=== PATIENT | female | born 1995 ===

== ENCOUNTER 2022-05-27 18:20 | Outpatient (CLI) | payer OTHER, MEDICAID, SELFPAY ==
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
[2022-05-28 13:27] LABS: Add Manual Diff / Slide Review NO; Basophils Absolute Auto 100 /uL (0-100); Basophils Percent Auto 0.5 % (0-2); Eosinophils Absolute Auto 0 /uL (0-450); Eosinophils Percent Auto 0.2 % (2-4); Hematocrit 37.6 % (36-46); Hemoglobin 12.2 g/dL (12.0-16.0); Lymphocytes Absolute Auto 1500 /uL (1100-4500); Lymphocytes Percent Auto 8.7 % (25-40); Mean Corpuscular HGB Conc 32.5 % (30-36); Mean Corpuscular Hemoglobin 28.2 PG (26-34); Mean Corpuscular Volume 86.8 fL (80-100); Monocytes Absolute Auto 800 /uL (0-900); Monocytes Percent Auto 4.5 % (3-14); Neutrophils Absolute Auto 15400 /uL (1500-7000); Neutrophils Percent Auto 86.1 % (50-75); Platelet Count 335 X10^3/uL (150-400); Red Blood Cell Count 4.33 X10^6/uL (4.0-5.2); Red Cell Distribution Width 14.3 % (11.6-14.8); White Blood Cell Count 17.9 X10^3/uL (4.5-11.0)
[2022-05-28 13:44] LABS: COVID19 -Nasal RAPID Negative (Negative)
[2022-05-28 13:52] LABS: BUN Creatinine Ratio 15.3 (6-22); Blood Urea Nitrogen 9 mg/dL (7-17); Calcium 9.6 mg/dL (8.4-10.2); Carbon Dioxide 22 mmol/L (22-32); Chloride 103 mmol/L (98-107); Estimated Glomerular Filt Rate > 60 mL/min (>60); Glucose 112 mg/dL (70-100); HEMOLYSIS < 15 (0-50); Potassium 4.8 mmol/L (3.4-5.1); Sodium 132 mmol/L (137-145)
[2022-05-28 18:10] LABS: HIV 1 & 2 Ab/Ag 4th Gen Combo NEGATIVE (NEGATIVE)
[2022-05-28 18:11] LABS: Hepatitis B Surface Antigen NEGATIVE s/c (NEGATIVE)
[2022-05-29 03:36] LABS: Hepatitis B Core Antibody Negative (Negative)
[2022-05-29 08:23] LABS: Varicella IgG Antibody <135 index (Immune >165)
== END 2022-05-27 19:15 | disposition home or self-care (01) ==
LOC: OB 05-29 07:52
PROVIDERS: Obstetrics & Gynecology; Family Provider Family Medicine; Referring Provider Obstetrics & Gynecology; Visit Provider Obstetrics & Gynecology
DX: O47.1 False labor at or after 37 completed weeks of gestation (principal); Z3A.38 38 weeks gestation of pregnancy
CPT/HCPCS: 36415; 59025; 80048; 85025; 86704; 86762; 86787; 86850; 86900; 86901; 87340; 87389; 87635; C9803; G0378; G0379

== ENCOUNTER 2022-05-28 10:20 | Inpatient (IN) | payer OTHER, MEDICAID, SELFPAY ==
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
[2022-05-28] MEDS: CALCIUM CARBONATE 500 MG TAB 1000 MG PO (15:48)
[2022-05-28 15:58] LABS: UR Morphine/Opiate cutoff 300 Negative (Negative); Ur Creatinine Normal (Normal); Ur Specific Gravity Normal (Normal); Urine Amphetamines Positive (Negative); Urine Cocaine Negative (Negative); Urine Tetrahydrocannabinol Positive (Negative); Urine pH Normal (Normal)
[2022-05-28 15:59] LABS: Urine Barbiturates Negative (Negative); Urine Benzodiazepines Negative (Negative); Urine MDMA Positive (Negative); Urine Methadone Negative (Negative); Urine Methamphetamines Positive (Negative); Urine Oxycodone Negative (Negative); Urine Phencyclidine Negative (Negative); Urine Tricyclic Antidepressant Positive (Negative)
--- NOTE | 2022-05-28 17:39 | PM.OBPRVD ---
Events: No Care Labor & Delivery Delivery date: 05/28/22 Intrapartal Events: Deceleration (Variables w/ pushing in the second stage) Cervical ripening method: none Induction method: none Delivery monitor: external FHT and external uterine Route of delivery: vacuum extraction Indication for instrumentation: nonreassuring FHR tracing Episiotomy description: None L&D Laceration Description: Perineal - 2nd Degree Delivery repair: chromic Estimated blood loss (mL): 400 Anesthesia Type: Epidural [place] Baby 1: gender: Female Presentation: vertex Position: Left Occiput Anterior Placenta delivery description: Spontaneous Cord Vessel Description: 3 Vessels score (1 min): 8 score (5 min): 9 weight: 7 lb 14.104 oz Narrative: After brief 2nd stage, the patient had pushed the baby down to +2 station but with each subsequent push, deep variables occurred. Unable to deliver the over the intact perineum, a Kiwi OmniCup was applied to the vertex at +2-3 station or and with a single pull utilizing suction less than 550 mm Hg at all times, the infant was easily brought down to the perineum where she pushed the baby out after release of the vacuum extractor. Shoulders and body delivered without incident and there was no cord entanglement noted. Skin to skin contact was initiated immediately and delayed cord clamping performed. The was vigorous and after 60 seconds, the umbilical cord was doubly clamped and cut. A sample of cord blood was then obtained for routine studies. The placenta was easily delivered with gentle cord traction and suprapubic countertraction. The placenta was seen to be in with central cord insertion and a three-vessel cord. Inspection of the perineum revealed a simple midline second-degree perineal laceration which was closed with 2-0 chromic catgut suture in the usual manner. IM Methergine 0.2 mg was administered due to slow firming of the uterus and resulting greater than average blood loss. At the completion of the delivery process, the patient's bleeding was minimal with both mother and infant tolerated the procedure well. Plan for aftercare: Routine care
[2022-05-28] MEDS: IBUPROFEN 600 MG TABLET PO (23:33)
[2022-05-28] MEDS: ACETAMINOPHEN 325 MG TABLET 650 MG PO (23:34)
[2022-05-29 06:06] LABS: RPR Screen Non Reactive (Non Reactive)
[2022-05-29 08:35] LABS: Add Manual Diff / Slide Review NO; Basophils Absolute Auto 100 /uL (0-100); Basophils Percent Auto 0.9 % (0-2); Eosinophils Absolute Auto 200 /uL (0-450); Eosinophils Percent Auto 1.9 % (2-4); Hematocrit 27.2 % (36-46); Lymphocytes Absolute Auto 3100 /uL (1100-4500); Mean Corpuscular HGB Conc 33.1 % (30-36); Mean Corpuscular Hemoglobin 28.5 PG (26-34); Mean Corpuscular Volume 86.2 fL (80-100); Monocytes Absolute Auto 1100 /uL (0-900); Monocytes Percent Auto 8.7 % (3-14); Neutrophils Absolute Auto 8300 /uL (1500-7000); Neutrophils Percent Auto 64.5 % (50-75); Platelet Count 258 X10^3/uL (150-400); Red Blood Cell Count 3.16 X10^6/uL (4.0-5.2); Red Cell Distribution Width 14.4 % (11.6-14.8); White Blood Cell Count 12.8 X10^3/uL (4.5-11.0)
[2022-05-29] MEDS: IBUPROFEN 600 MG TABLET PO ×2 (09:01→17:58)
[2022-05-29] MEDS: ACETAMINOPHEN 325 MG TABLET 650 MG PO ×2 (09:02→17:58)
[2022-05-29] MEDS: DOCUSATE 100 MG CAPSULE PO (09:04)
--- NOTE | 2022-05-29 09:07 | PM.OBPN.1 ---
Subjective - OB Subjective Patient comments: no complaints and pain well controlled [place] baby status: doing well [place] feeding status: exclusively breast feeding Narrative: Doing well. Baby will be remaining in nursery for observation w/ + meth. SS and CPS involved with . Exam Const General: cooperative and comfortable Nutritional Appearance: average body habitus Orientation: alert and oriented x3 HENMT Head: normal to inspection, atraumatic and abrasion Ears: hearing grossly normal bilaterally Face and sinus: face symmetric Eyes General: appearance normal, both eyes and all related structures Conjunctivae: conjunctivae normal Sclera: sclerae normal EOM: EOM intact bilaterally Neck Neck: normal visual inspection Resp Effort & Inspection: normal respiratory effort and able to speak in complete sentences GI Inspection: normal to inspection Palpation: soft, no hepatosplenomegaly and mass (Firm, minimally tender fundus, U -6) External Female Exam: other (No significant bleeding noted, perineum intact) Extrem General: no calf tenderness Psych Appearance: grossly normal Mental Status: mental status grossly normal Speech and Movement: speech and movement normal Mood: congruent mood Affect: normal affect Attitude: cooperative Thought Process: normal Thought Content: normal Judgment: judgment good Objective Labs Result Diagrams: 05/29/22 08:20 Labs: Laboratory Results - last 24 hr 05/28/22 05/28/22 05/29/22 12:30 13:00 08:20 WBC 12.8 H RBC 3.16 L Hgb 9.0 L Hct 27.2 L MCV 86.2 MCH 28.5 MCHC 33.1 RDW 14.4 Plt Count 258 Neut % (Auto) 64.5 D Lymph % (Auto) 24.0 L [place] % (Auto) 8.7 Eos % (Auto) 1.9 L Baso % (Auto) 0.9 Neut # (Auto) 8300 H Lymph # (Auto) 3100 [place] # (Auto) 1100 H Eos # (Auto) 200 Baso # (Auto) 100 U Opiates 300ng/mL cut Negative Ur Oxycodone Screen Negative Urine Methadone Screen Negative Ur Barbiturates Screen Negative U Tricyclic Antidepress Positive H Ur Phencyclidine Scrn Negative Ur Amphetamines Screen Positive H U Methamphetamines Scrn Positive H Ur MDMA Scrn (Ecstasy) Positive H U Benzodiazepines Scrn Negative Urine Cocaine Screen Negative U Marijuana (THC) Screen Positive H Serum VDRL Non reactive Assessment & Plan Plan day: 1 plan OB: routine care Time Spent With Patient Time: Total time spent is greater than 50% in coordination of care (as documented) at patient's floor/unit and/or counseling patient: Time with patient: 15-24 minutes
--- NOTE | 2022-05-29 12:19 | CM.SWNOTE ---
Addendum entered by ANETTE Knight 05/29/22 12:54: ADD: Return call from CPS worker Alyce ([phone]) stating she received the referral and will not be the assigned worker meeting bedside with pt but it will be a worker from the [facility] office that will eval ENMA bedside today but unsure what time yet. Alyce gathered additional information below on ENMA and will provide to the assigned CPS worker but Alyce will remain the contact for now if [facility] has any questions or concerns. MASH FILTER PRESS OPERATOR updated Center. BF Original Note: ENMA is a 27 yo female who was admitted on 05/28/22 for Labor. Pt has [employer] and [employer] for insurance and her PCP is Anderson Perez. EMR was reviewed. MASH FILTER PRESS OPERATOR consult due to pt's UDS+ amphetamines, meth, ecstacy, THC, antidepressant and lack of care. MASH FILTER PRESS OPERATOR called [facility] and provided referral and pt not showing as having an active open case but information screened in and anticipate CPS to arrive bedside today to complete interview/assessment. graphic pre press trades worker Leatha Henry intake #[id number]. MASH FILTER PRESS OPERATOR met bedside with ENMA and explained role and MOB confirms that she lives on [address] in a house with her good friend, friend's boyfriend, and friend's grandma. ENMA denies any local supportive family and admits to no care but states she reduced her polysubstance abuse from daily to once in a while when I would relapse. Pt denies that her roommates use drugs and pt states I have already cut my ties with those people that I would do drugs with. ENMA denies any hx of RILEY tx or MH tx and denies any involvement with CPS prior with her own children although she confirms that she is and had her first child 10 years ago and voluntarily gave up her parental rights to FOB. ENMA states she had involvement with CPS as a child as her parents had CPS involvement. ENMA states she receives p[place] and food assist from Medicaid and already established with [facility] and has baby supplies which are bedside including carseat. ENMA denies any Maternity Support Services but would be appreciative of their support and is agreeable with RILEY treatment or counseling but would prefer outpt tx/services but would be willing to do Inpt RILEY tx if required. MOB preference is to d/c home with baby and feels she has sober supports in the home and on [facility] and wants to keep her baby girl Jeannette and breast feed once the drugs are no longer in her system. MOB would like to initiate pumping since currently baby girl is bottle fed with formula due to tox screen. MOB denies feelings of withdrawal and currently has just been tired and baby also difficult to wake and stay awake for feeding. Toxicology still pending for baby girl. EMMANUEL is a friend on [address] but he questions paternity but did provide baby girl name but was not bedside for delivery and currently MOB is upset with him and told him not to come visit. MASH FILTER PRESS OPERATOR explained CPS interview towards determining if baby can d/c home with MOB and help connect MOB with community resources towards being successful and sober. MOB agreeable and appreciative and appears to be providing accurate information and motivated for sobriety and parenting but unclear if she currently has enough resources and supports in place. MASH FILTER PRESS OPERATOR updated RN and they will initiate breast pump to stimulate milk production per MOB request. Plan: MASH FILTER PRESS OPERATOR to follow for CPS arrival and interview towards determining discharge plan for zarina Machado. ANETTE Knight
[2022-05-30] MEDS: DOCUSATE 100 MG CAPSULE PO ×2 (07:59→20:57)
[2022-05-30] MEDS: IBUPROFEN 600 MG TABLET PO ×3 (07:59→20:57)
[2022-05-30] MEDS: ACETAMINOPHEN 325 MG TABLET 650 MG PO ×3 (07:59→20:56)
--- NOTE | 2022-05-30 17:51 | P.PNOB_ITS ---
Subjective - OB Subjective Patient comments: no complaints [place] baby status: doing well feeding status: exclusively bottle feeding Date Patient Seen: 05/30/22 Time Patient Seen: 17:51 Exam Const General: cooperative and comfortable Nutritional Appearance: average body habitus Orientation: alert and oriented x3 HENMT Head: normal to inspection, atraumatic and abrasion Ears: hearing grossly normal bilaterally Face and sinus: face symmetric Eyes General: appearance normal, both eyes and all related structures Conjunctivae: conjunctivae normal Sclera: sclerae normal EOM: EOM intact bilaterally Neck Neck: normal visual inspection Resp Effort & Inspection: normal respiratory effort and able to speak in complete sentences GI Inspection: normal to inspection Palpation: soft and no hepatosplenomegaly External Female Exam: other (No significant bleeding noted, perineum intact) Extrem General: no calf tenderness Psych Appearance: grossly normal Mental Status: mental status grossly normal Speech and Movement: speech and movement normal Mood: congruent mood Affect: normal affect Attitude: cooperative Thought Process: normal Thought Content: normal Judgment: judgment good Objective Labs Result Diagrams: 05/29/22 08:20 Assessment & Plan Plan day: 2 plan OB: routine care Comments: Due to remaining on hold per Peds due to maternal drug use, meeting with CPS, patient, and immediate family scheduled for today but it did not happen as scheduled. Will remain overnight and plan for discharge in the AM. Time Spent With Patient Time: Total time spent is greater than 50% in coordination of care (as documented) at patient's floor/unit and/or counseling patient: Time with patient: 15-24 minutes
--- NOTE | 2022-05-31 08:35 | PM.OBDS.1 ---
Discharge Providers Provider Date of admission: 05/28/22 10:20 Discharge Date: 05/31/22 Consults: 05/28/22 13:23 [place] [facility] Routine Comment: in labor, no care, meth use 05/28/22 18:00 Consult to [facility] Routine Comment: Maternal methamphetamine abuse during 05/29/22 17:21 Consult to Receipt And Report Clerk Routine Comment: Discharge provider: Florencio Garsia MD Summary Hospital Course Date Patient Seen: 05/31/22 Time Patient Seen: 08:35 Diagnoses: Intrauterine gestation, 38+5 wks EGA, delivered by vaginal Maternal methamphetamine use during Hospital Course: Alfredo was admitted on the morning of 05/28/2022 in labor after receiving no care aside from an early dating ultrasound. Drug screen on admission was positive for methamphetamine, tricyclic antidepressants, ecstasy, and marijuana. On the afternoon of 05/28/2022 she delivered spontaneously a viable female weight 7 lb 14.1 oz and Apgars of 8/9 during which she sustained a second-degree perineal laceration requiring repair. Following delivery she has done well with prompt return of bowel and bladder function, ambulating independently, tolerating diet, pain is well controlled with oral pain medications. Potline Monitor and CPS interviews conducted post delivery and the infant is being held for observation by Pediatrics due to the 's positive drug screens result from maternal drug abuse during . The mother will be discharged at this time to home in an afebrile normotensive condition after counseling regarding precautionary symptoms, limitations of activity, medications, and plans for follow-up. Medications at discharge will be continuation of vitamins along with ibuprofen 600 mg p.o. q.6 hours as needed for pain. Peripartum Data Delivery Method: Natural Vaginal Laceration Description: Perineal - 2nd Degree Episiotomy description: None complications: none [place] 1: Gender: Female Disposition of : other (Pediatric/CPS hold pending CPS review ) Status at Discharge Cognitive/behavioral status at discharge: oriented Functional status at discharge: independent ambulation Overall status at discharge: patient is progressing back to baseline Time Spent with Patient Time attestation: Total time spent providing and/or coordinating discharge services: Time spent: Less than 30 minutes Objective Labs Result Diagrams: 05/29/22 08:20 Exam Const General: cooperative and comfortable Nutritional Appearance: average body habitus Orientation: alert and oriented x3 HENMT Head: normal to inspection, atraumatic and abrasion Ears: hearing grossly normal bilaterally Face and sinus: face symmetric Eyes General: appearance normal, both eyes and all related structures Conjunctivae: conjunctivae normal Sclera: sclerae normal EOM: EOM intact bilaterally Neck Neck: normal visual inspection Resp Effort & Inspection: normal respiratory effort and able to speak in complete sentences GI Inspection: normal to inspection Palpation: soft and no hepatosplenomegaly External Female Exam: other (No significant bleeding noted, perineum intact) Extrem General: no calf tenderness Psych Appearance: grossly normal Mental Status: mental status grossly normal Speech and Movement: speech and movement normal Mood: congruent mood Affect: normal affect Attitude: cooperative Thought Process: normal Thought Content: normal Judgment: judgment good Discharge Plan Discharge Plan Patient Disposition: Home Provider Discharge Comment: Please review the written instructions you received when were discharged from the hospital. Your follow-up appointment will be scheduled for 6 weeks after the delivery of baby and I look forward to seeing you then. If however you have any concerns, problems, or issues, please contact me either through the office phone at [phone] or via the patient portal. Discharge orders & Medications Prescriptions: New ibuprofen 600 mg Tablet 600 mg PO Q6HR PRN (Reason: Pain, Mild (1-3)) Qty: 30 1RF Continued Vitamin Plus Low Iron 27 mg iron- 1 mg tablet 1XD Label Comments: Take 1 tablet by mouth daily Rx Instructions: PRN Follow up/Referrals: Florencio Garsia MD [Physician] - ( appt: Jul 10 @ 2pm w/ Dr. Garsia) Discharge Health Status Multidrug resistant organism: No MDRO Diet/Activity/Treatments Diet: Diet as Tolerated Activity: As tolerated Other treatments: Duwy-wgg-ubxbofl Tylenol and/or ibuprofen may be used for pain relief. Rtvs-fyy-lbrperk stool softeners and/or MiraLax may be used for constipation. Skin/Wound/Dressing Care Report to your healthcare provider any signs of infection, such as:: chills, fever, increased pain, unusual drainage and unusual redness Visit Report/Discharge Packet Instructions: DI for Labor and Delivery, Vaginal Stand Alone Forms: Discharge: Care
--- NOTE | 2022-05-31 16:17 | CM.SWNOTE ---
MINERAL ENGINEER Note Copied from Baby girl Swathi's chart Speaking with center staff yesterday and today for coordination of plan According to LETICIA Maurice, mom has been discharged today and baby on a medical hold at this time until CPS advises on safe dispo for baby dotty [place]. 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 Updated that baby girl is on a medical hold and she is not medically ready for discharge at this time, possibly tomorrow after Dr Allison, provider relations representative customer care specialist, evaluates Alyce plans to visit mom Alfredo's home [place] AM and will have more information Quyen afternoon re next steps in baby's living arrangement, court involvement, etc Meanwhile, if baby girl is medically discharged tomorrow, center staff and/or MINERAL ENGINEER team can call CPS main intake line to request help with emergency foster placement while Alyce works with mom next week Updated LETICIA Maurice. This MINERAL ENGINEER or ER MINERAL ENGINEER will plan to follow closely with staff tomorrow JW
== END 2022-05-31 09:20 | disposition home or self-care (01) | DRG 560 ==
PROVIDERS: Admitting Provider Obstetrics & Gynecology; Family Provider Family Medicine; Referring Provider Obstetrics & Gynecology; Visit Provider Obstetrics & Gynecology
DX: O99.324 Drug use complicating childbirth (principal); F19.20 Other psychoactive substance dependence, uncomplicated; O70.1 Second degree perineal laceration during delivery; O09.33 Supervision of pregnancy with insufficient antenatal care, third trimester; Z3A.38 38 weeks gestation of pregnancy; Z37.0 Single live birth; O99.334 Smoking (tobacco) complicating childbirth; O47.1 False labor at or after 37 completed weeks of gestation
CPT/HCPCS: 36415; 59025; 59050; 59409; 80048; 80305; 85025; 86592; 86704; 86762; 86787; 86850; 86900; 86901; 87340; 87389; 87635; 99222; 99238; C9803; G0379; J2405; J2540

== ENCOUNTER 2024-06-25 10:24 | Day surgery (SDC) | payer OTHER, SELFPAY ==
[2024-06-25] VITALS (7 sets, daily range): BP systolic 102–116; BP diastolic 71–86; PULSE 76–100; RESP 12–16; TEMP 36.2–36.5; O2SAT 93–100; BMI 35.6
--- NOTE | 2024-06-25 | PATH_ITS ---
[facility] Accession Number: [id number] No. of containers..01 Tissue . 01 Material submitted: . product of conception - RETAINED PRODUCTS OF CONCEPTION . 01 Diagnosis: Submitted as Retained Products of Conception: - Chorionic villi present with degenerative changes, negative for proliferation or significant atypia. - Benign decidual tissue present. - Necro-inflammatory debris and fibrin present. - Background of benign secretory endometrium is seen. TXN 06/28/2024 1056 Local . 01 Electronically signed: . Lyudmila Maya MD, Pathologist NPI- [id number] . 01 Gross description: . The specimen is received in formalin, labeled with two patient identifiers and retained products of conception, and consists of a 6.2 x 4.0 x 1.1 cm aggregate of clotted blood admixed with fibromembranous tissue. No tissue or villous tissue is appreciated. Beef Killer sections are submitted in cassettes A1 and A2. (Approximately 15% of the specimen is submitted.) ([id number]) /TATI 06/26/2024 1643 Local . 01 Pathologist provided ICD-10: O72.2 . 01 CPT . 088339 Specimen Comment: A courtesy copy of this report has been sent to [phone] Performed at: [address] [facility] [address], [place], [place] [id number] MD Seun Swartz MD Phone: [phone]
--- NOTE | 2024-06-25 11:30 | SUR.PREOP ---
1120 - pt states I forgot, I have to have an ultrasound before this. No orders at hospital. I'm supposed to have it at Dr Valles's office but I thought I'd have it at the bedside. Dr Valles notified. She wants pt to come to office for US.
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
[2024-06-25] MEDS: LACTATED RINGERS 1,000 ML 21 ML IV (12:00)
--- NOTE | 2024-06-25 12:57 | PM.OP.1 ---
Operative Date/Time/Diagnoses Date of procedure: 06/25/24 Time of procedure: 12:57 Pre-op diagnosis: Retained products of conception, outdated Nexplanon in left arm Post-op diagnosis: same Procedure & Clinicians Procedure: Removal of Nexplanon from left arm, suction D&C Same procedure as scheduled: Yes Indications: Nexplanon in left arm in place for greater than 3 years. Status post medical with 1 month of bleeding and retained products of conception on ultrasound Surgeon: Myra Valles Click Yes if Unassisted: Yes Anesthesia Type: General Operative Notes Findings: Nexplanon in left upper arm. Moderate amount of retained products of conception in the uterus. Closure Type: primary Specimen(s): other (Retained products of conception from the uterus) Estimated Blood Loss (mL): 25 Blood products transfused: none Procedure in detail: Patient was brought to the operating room where she underwent general anesthesia. Her left arm was prepped with Betadine. An incision in the skin was made at 1 end of the palpable Nexplanon. The Nexplanon was grasped and removed intact. The incision was closed with Steri-Strips. Next the patient was in low stirrups and was prepped and draped in the usual sterile fashion. A single-tooth tenaculum was placed on the anterior lip of the cervix. The cervix was dilated to a 8. Hegar dilator. The uterus was sounded. The #7 suction curette was placed through the cervix into the uterus. Moderate amount of tissue was removed. Sharp curettage was performed revealing a rough texture throughout the whole uterus. The suction curette was replaced. Bleeding was normal after the procedure. Patient went to recovery room in stable condition. Counts of instruments and sponges were correct. Complications: none Post-operative Condition: stable Disposition: same day surgery Plan for aftercare: Home when awake and stable
[2024-06-25] MEDS: ACETAMINOPHEN 325 MG TABLET 975 MG PO (13:23)
== END 2024-06-25 13:40 | disposition home or self-care (01) ==
PROVIDERS: Family Provider Family Medicine; PCP Specialist; Referring Provider Specialist; Visit Provider Specialist
PROC: (CPT 58120; principal; 2024-06-25 12:30)
DX: O72.2 Delayed and secondary postpartum hemorrhage (principal); Z30.46 Encounter for surveillance of implantable subdermal contraceptive
CPT/HCPCS: 59812; 11976; 11982; J1100; J1885; J2405; J2704; J3010